=== PATIENT | female | born 1940 | race Caucasian/White ===

== ENCOUNTER 2017-11-21 07:13 | Day surgery (SDC) | payer MEDICARE, OTHER ==
[~2017-11-21] VITALS: Ht 154.9 cm; Wt 48.6 kg
[~2017-11-21 07:13] MED LIST: HERBS; HORMONE CREAM; HYDACE5 PO; LISI20; PROACE100 PO; [UNRECOGNIZED DRUG - REMARK]
[2017-11-21] MEDS ORDERED: Armour Thyroid15 MG PO (09:07)
[2017-11-21] MEDS ORDERED: Estring1 EACH VAG (09:08)
[2017-11-21] MEDS ORDERED: Selenium100 MCG PO (09:09)
[2017-11-21] MEDS ORDERED: ASCO500 PO (09:10)
[2017-11-21] MEDS ORDERED: VITAMIN D5000 UNIT PO (09:10)
[2017-11-21] MEDS ORDERED: Vitamin B Comple1 EA PO (09:11)
== END 2017-11-21 10:12 | disposition home or self-care (01) ==
LOC: ORSCSDS 07:13
PROVIDERS: Internal Medicine Gastroenterology
PROC: 0DJ08ZZ Inspection of Upper Intestinal Tract, Via Natural or Artificial Opening Endoscopic (ICD-10-PCS; principal; 2017-11-21 09:30)
DX: R13.10 Dysphagia, unspecified (principal); K22.2 Esophageal obstruction; R94.8 Abnormal results of function studies of other organs and systems; I10 Essential (primary) hypertension; E03.9 Hypothyroidism, unspecified; Z87.891 Personal history of nicotine dependence; Z79.899 Other long term (current) drug therapy
CPT/HCPCS: J7120